=== PATIENT | female | born 1960 | race Caucasian/White ===

== ENCOUNTER → 2016-07-30 | Outpatient (CLI) | payer OTHER ==
--- NOTE | 2016-07-30 15:07 | MA ---
Screening Digital Mammogram With Tomosynthesis Clinical Indications: Routine screening. Technique: Standard digital cephalocaudal and tomosynthesis mediolateral oblique projections are obt ained. The digital images are processed by the [employer] computer aided detection system. Comparison: May 2015, April 2014 and April 2013 (mammogram and breast MRI) Breast density: C; The breast tissue is heterogeneously dense, which could obscure detection of small masses. Findings: CAD was reviewed. Focal architectural distortion upper 11:00 left breast (image 37/61). Thi s looks more prominent than in 2013. The remainder the left and right breast are stable. Impression: Architectural distortion upper left breast. Recommendation: Further imaging with breast MRI to differentiate scar from malignancy. BI-RADS 0. Additional imaging left breast. [facility] will send a result letter to the patient. Negative mammography should not preclude additional workup of a clinically suspicious finding. The patient's information is entered into a reminder system with a target due date for her next mammo gram.
== END ==
LOC: FIMAGING 13:56
DX: Z12.31 Encounter for screening mammogram for malignant neoplasm of breast (principal)
CPT/HCPCS: G0202

== ENCOUNTER → 2016-08-04 | Outpatient (CLI) | payer OTHER ==
[~2016-08-04] MED LIST: GADOBUTROL 10 ML VIAL IVP ONE
--- NOTE | 2016-08-05 13:49 | MR ---
MRI of Bilateral Breasts Clinical Indications: Postsurgical change versus malignant architectural distortion, left breast. Technique: Precontrast sagittal fat-saturated T2-weighted and Vibrant images of both breasts are obt ained. Subsequently, during intravenous administration of 6 mL Gadavist, multiphasic sagittally acqu ired Vibrant MR images through both breasts are obtained. Data are sent to the independent [employer] workstation for additional analysis including 3D reconstruction, computer-aided detection (CAD), and color-coded phase contrast enhancement evaluation. Comparison Study: Mammography July 30, 2016. Prior breast MRI May 17, 2013. Findings Left Breast: Benign enhancement characteristics are again noted within the left breast, without evide nce of masslike or ductal enhancement. Postsurgical changes are noted in the periareolar region. Right Breast: Benign mild fibrocystic enhancement characteristics are also again noted within the rig ht breast, without masslike or ductal enhancement. Lymph Nodes: No evidence of axillary or internal mammary lymphadenopathy. Impression: Stable benign bilateral breast MRI examination. BI-RADS 2. Recommendation: Routine annual screening.
== END ==
LOC: FIMAGING 07:52
PROVIDERS: ATTEND Nurse Practitioner Family
DX: R92.8 Other abnormal and inconclusive findings on diagnostic imaging of breast (principal)
CPT/HCPCS: 0159T; A9585; C8908

== ENCOUNTER → 2017-08-26 | Outpatient (CLI) | payer OTHER | LOC: FIMAGING 13:58 | PROVIDERS: ATTEND Obstetrics & Gynecology | DX: Z12.31 Encounter for screening mammogram for malignant neoplasm of breast (principal) ==

== ENCOUNTER → 2017-11-30 | Outpatient (CLI) | payer OTHER | LOC: FIMAGING 12:33 | PROVIDERS: ATTEND Neurological Surgery | DX: M51.36 Other intervertebral disc degeneration, lumbar region (principal); M43.16 Spondylolisthesis, lumbar region ==

== ENCOUNTER → 2018-10-14 | Outpatient (CLI) | payer OTHER | LOC: FIMAGING 13:45 | PROVIDERS: ATTEND Internal Medicine | DX: Z12.31 Encounter for screening mammogram for malignant neoplasm of breast (principal) ==